=== PATIENT | female | born 1985 | race Caucasian/White ===

== ENCOUNTER → 2017-05-19 | Outpatient (CLI) | payer BC ==
--- NOTE | 2017-05-19 21:09 | MR ---
EXAMINATION TYPE: MR lumbar spine wo con DATE OF EXAM: 05/19/2017 COMPARISON: NONE HISTORY: cervicalia, lumbago, ryan, weakness, pain TECHNIQUE: T1 and T2 axial and sagittal images of the lumbar spine are submitted. FINDINGS: There is no abnormal signal seen within the visualized spinal cord or paraspinal soft tissu es. At L1-2 there is no disc herniation or canal stenosis. No foraminal encroachment. At L2-3 there is no disc herniation or canal stenosis. No foraminal encroachment. At L3-4 there is no disc herniation or canal stenosis. No foraminal encroachment. At L4-5 there is no disc herniation or canal stenosis. No foraminal encroachment. Facet arthropathy. At L5-S1 there is no disc herniation or canal stenosis. No foraminal encroachment. There is facet art hropathy. IMPRESSION: 1. Facet arthropathy lower lumbar spine. No disc herniation, or canal stenosis. Spine EXAMINATION TYPE: MR cervical spine wo con DATE OF EXAM: 05/19/2017 COMPARISON: NONE HISTORY: cervicalia, lumbago, ryan, weakness, pain TECHNIQUE: T1 sagittal and coronal, T2 sagittal, and gradient echo axial views of the cervical spine are submitted. FINDINGS: The cranial cervical junction is preserved. There is abnormal signal within the cervical s catie cord at the C2-3 level posterior laterally on the right. Additionally suspect abnormal signal a t the C6/7 level posteriorly and changes of chronic sphenoidal sinusitis. At C2-3 there is no disc herniation or canal stenosis. No foraminal encroachment. At C3-4 there is no disc herniation or canal stenosis. No foraminal encroachment. Mild uncovertebral joint hypertrophy. At C4-5 there is no disc herniation or canal stenosis. No foraminal encroachment. At C5-6 there is no disc herniation or canal stenosis. No foraminal encroachment. At C6-7 there is no disc herniation or canal stenosis. No foraminal encroachment. At C7-T1 there is no disc herniation or canal stenosis. No foraminal encroachment. IMPRESSION: 1. Assessment for abnormal signal within the spinal cord is limited by motion artifact. However, fin dings are suspicious for abnormal signal involving the C2-3 level and C6-C7. Findings are suggestive of myelitis. Correlate clinically.
--- NOTE | 2017-05-23 12:34 | MR ---
EXAMINATION TYPE: MR brain wo/w con DATE OF EXAM: 05/19/2017 COMPARISON: Prior CT brain 04/15/2014 HISTORY: cervicalia, lumbago, ryan, weakness, pain TECHNIQUE: Multiplanar, multisequence images of the brain and brainstem is performed without and with IV contras t, utilizing 18 mL intravenous MultiHance . FINDINGS: Diffusion weighted images demonstrate no evidence of a recent infarct or other diffusion ab normality. There is no extra-axial fluid collection. Hyperintensities are present within the deep wh ite matter, periventricular, juxtacortical and pericallosal location on inversion recovery and T2-kita ghted sequences, there are approximately 15-20 lesions some of which are perpendicular to the lateral ventricles. No abnormal enhancement following contrast menstruation. Largest lesion in the left fro ntal lobe measures approximately 12.6 mm. Largest on the right is approximately 9.4 mm in the right p arietal lobe. The ventricular system and cisternal spaces are normal in size and appearance. The brain volume is a ge appropriate. Midline structures demonstrate normal morphology. The craniocervical junction appears within normal limits. The dural venous sinuses appear patent. The visualized sinuses are remarkable for inflammato ry change in the sphenoid sinus, mucosal thickening in the maxillary sinuses, ethmoid air cells. The globes are intact. IMPRESSION: Findings suggest multiple sclerosis, correlate.
== END | disposition home or self-care (01) ==
LOC: RADMRIMAIN 10:37
PROVIDERS: ATTEND Nurse Practitioner Acute Care
DX: M46.86 Other specified inflammatory spondylopathies, lumbar region (principal); M54.2 Cervicalgia; G35 Multiple sclerosis
CPT/HCPCS: 70553; 72141; 72148; A9577

== ENCOUNTER → 2019-07-13 | Outpatient (CLI) | payer BC ==
--- NOTE | 2019-07-13 18:00 | MR ---
EXAMINATION TYPE: MR knee RT wo con DATE OF EXAM: 07/13/2019 COMPARISON: Plain film 07/02/2019 HISTORY: Pain in right knee TECHNIQUE: Multiplanar, multisequence imaging of the right knee is performed without IV contrast. FINDINGS: MEDIAL MENISCUS: Posterior horn of the medial meniscus shows some linear increased signal, I question extension to the undersurface on coronal image 18, sagittal image #8. At the posterior margin of the medial meniscus towards the midline at the level of the anchor root there is an oval T2 intense focu s measuring approximately 1 cm which may represent a meniscal cyst. LATERAL MENISCUS: Anterior and posterior horns are intact without tear. CRUCIATE LIGAMENTS: The anterior and posterior cruciate ligaments are intact and unremarkable. COLLATERAL LIGAMENTS: Medial collateral ligament shows some abnormal increased signal at the level of its origin. Some local soft tissue increased signal, fluid signal is present. EXTENSOR MECHANISM: Visualized quadriceps and patellar tendons are intact. EFFUSION: No significant suprapatellar joint effusion. POPLITEAL CYST: No popliteal/judd cyst. TRICOMPARTMENT SPACES: Normal CARTILAGE: Intact. BONE MARROW SIGNAL: Intermediate signal on T1, increased signal on T2-weighted sequences within the m edial femoral condyle near the origin of the medial collateral ligament is noted. OTHER: No additional significant abnormality is appreciated. IMPRESSION: Medial collateral ligament sprain. Possible meniscal cyst, intrasubstance signal within the medial me niscus as described, difficult to exclude subtle meniscal tear.
== END | disposition home or self-care (01) ==
LOC: RADMRIMAIN 16:47
PROVIDERS: ATTEND Orthopaedic Surgery
DX: S83.411A Sprain of medial collateral ligament of right knee, initial encounter (principal)

== ENCOUNTER → 2020-11-07 | Outpatient (CLI) | payer BC ==
[2020-11-07 15:56] LABS: Basophils # (A) 0.1 k/uL (0-0.2); Basophils % (A) 1 %; Eosinophils # (A) 0.5 k/uL (0-0.7); Eosinophils % (A) 5 %; HCT 39.6 % (34.0-46.0); Lymphocytes # (A) 1.3 k/uL (1.0-4.8); Lymphocytes % (A) 13 %; MCH 27.1 pg (25.0-35.0); MCHC 32.9 g/dL (31.0-37.0); MCV 82.3 fL (80.0-100.0); Mean Platelet Volume 6.7; Monocytes # (A) 0.3 k/uL (0-1.0); Monocytes % (A) 3 %; Neutrophils # (A) 7.6 k/uL (1.3-7.7); Neutrophils % (A) 77 %; Platelet Count 384 k/uL (150-450); RBC 4.81 m/uL (3.80-5.40); RDW 13.6 % (11.5-15.5); WBC 9.8 k/uL (3.8-10.6)
[2020-11-08 02:57] LABS: Albumin 4.5 g/dL (3.80-4.90); Albumin/Globulin Ratio 2.65 (1.60-3.17); Anion Gap 8.8 mmol/L (4.00-12.00); BUN/Creat Ratio 15.71 Ratio (12.00-20.00); Calcium 7.9 mg/dL (8.7-10.3); Carbon Dioxide 26.2 mmol/L (21.6-31.8); Globulin 1.7 g/dL (1.6-3.3); Potassium 4.2 mmol/L (3.5-5.5); Total Bilirubin 0.3 mg/dL (0.2-1.2); Total Protein 6.2 g/dL (6.2-8.2)
[2020-11-08 04:38] LABS: Hepatitis B Core IgM Non-Reactive (Non-Reactive); Hepatitis B Surface Antibody Non-Reactive (Non-Reactive); Hepatitis B Surface Antigen Non-Reactive (Non-Reactive)
== END | disposition home or self-care (01) ==
LOC: LABWHC1 14:25
PROVIDERS: ATTEND Nurse Practitioner Acute Care
DX: G35 Multiple sclerosis (principal); E55.9 Vitamin D deficiency, unspecified
CPT/HCPCS: 36415; 80053; 82306; 82607; 84207; 85025; 86704; 86705; 86706; 87340